=== PATIENT | female | born 1950 | race Caucasian/White ===

== ENCOUNTER 2017-07-13 07:35 | Emergency (ER) | payer MEDICARE, OTHER ==
[2017-07-13] MEDS: Sodium Chloride 0.9% 1,000 ML IV ONE (08:38)
[2017-07-13 09:12] LABS: CHLORIDE,CL 93 mmol/L (98-115); SODIUM,NA 130 mmol/L (136-145)
--- NOTE | 2017-07-13 09:16 | EDM.PDOC ---
ED HPI GENERAL MEDICAL PROBLEM - General Chief Complaint: General Stated Complaint: POSSIBLE RX ALLERGIC REACTION Time Seen by Provider: 07/13/17 07:55 Source of Information: Reports: Patient, RN History Limitations: Reports: No Limitations - History of Present Illness INITIAL COMMENTS - FREE TEXT/NARRATIVE: 67-year-old female presents to the emergency room brought in by the ambulance service from [facility] with concerns complaints of possible allergic reaction to medication she started yesterday. Patient states that she started on Lexapro feels that she was having a reaction to this. She denies any difficulty breathing, shortness of breath, swallowing, rash or hives, or swelling of the throat. On arrival she reports that she has some chest discomfort but this is the same discomfort that she's had in her chest since June. She's tried 2 other medications for her for her anxiety. She denies any pain radiating to her arm, back, jaw, stomach. She denies any nausea or vomiting. She denies being diaphoretic. She supplements her anxiety with marijuana. She feels that she likely is dehydrated denies any urinary frequency or urgency. She denies that her urine has been dark or cloudy. She is not having any dysuria. She's had a stress test about 7 years ago, and she had no difficulties with the stress test at that time. Onset: Today Onset Date: 07/13/17 Duration: Week(s): Location: Reports: Chest Quality: Reports: Pressure Severity: Mild Improves with: Reports: Medication Worsens with: Reports: None Associated Symptoms: Reports: No Other Symptoms Chest Pain Score (Numeric/FACES): 4 - Related Data Allergies Allergy/AdvReac Type Severity Reaction Status Date / Time No Known Allergies Allergy Verified 07/13/17 07:56 Home Meds: Home Meds ALPRAZolam [Xanax] 0.5 mg PO Q12H PRN 02/23/15 [History] ClonazePAM [KlonoPIN] 0.5 mg PO DAILY PRN 02/23/15 [History] Lidocaine 5% [Lidoderm 5%] 1 patch TOP DAILY PRN 02/23/15 [History] Losartan Potassium [Cozaar] 100 mg PO DAILY 02/23/15 [History] atorvaSTATin [Lipitor] 10 mg PO DAILY 02/23/15 [History] amLODIPine [Norvasc] 5 mg PO DAILY #30 tablet 02/26/15 [Rx] Escitalopram [Lexapro] 5 mg PO ASDIRECTED 07/13/17 [History] Past Medical History HEENT History: Reports: None Cardiovascular History: Reports: High Cholesterol Respiratory History: Reports: None Gastrointestinal History: Reports: None Genitourinary History: Reports: None [employer] History: Reports: None Musculoskeletal History: Reports: None Neurological History: Reports: None Psychiatric History: Reports: Anxiety Endocrine/Metabolic History: Reports: None Hematologic History: Reports: None Immunologic History: Reports: None Oncologic (Cancer) History: Reports: None Dermatologic History: Reports: None Social & Family History - Tobacco Use Smoking Status *Q: Never Smoker Second Hand Smoke Exposure: No - Caffeine Use Caffeine Use: Reports: Coffee, Tea - Recreational Drug Use Recreational Drug Use: Yes Recreational Drug Type: Reports: Marijuana/Hashish - Living Situation & Occupation Living situation: Reports: Occupation: Unemployed ED ROS GENERAL - Review of Systems Review Of Systems: See Below Constitutional: Denies: Fever, Chills, Weakness, Diaphoresis HEENT: Denies: Glasses, Throat Pain, Throat Swelling, Vertigo Respiratory: Denies: Shortness of Breath, Cough Cardiovascular: Reports: Other (chest pressure). Denies: Blood Pressure Problem , Dyspnea on Exertion, Orthopnea, Palpitations Endocrine: Reports: No Symptoms GI/Abdominal: Denies: Abdominal Pain, Constipation, Diarrhea : Denies: Frequency, Urgency Musculoskeletal: Reports: No Symptoms Skin: Denies: Cyanosis, Jaundice, Dryness, Pruritis, Rash, Erythema, Lesions, Urticaria Neurological: Denies: Confusion, Dizziness, Headache, Numbness, Paresthesia, Syncope, Tingling, Trouble Speaking, Difficulty Walking, Weakness, Change in Speech, Gait Disturbance Psychiatric: Reports: Anxiety Hematologic/Lymphatic: Reports: No Symptoms Immunologic: Reports: No Symptoms ED EXAM, GENERAL - Physical Exam Exam: See Below Exam Limited By: No Limitations General Appearance: Alert, WD/WN, No Apparent Distress Eye Exam: Bilateral Eye: EOMI, PERRL Ears: Normal External Exam Nose: Normal Inspection Throat/Mouth: Normal Inspection, Normal Lips, Normal Oropharynx, Normal Voice, No Airway Compromise Head: Atraumatic Neck: Normal Inspection, Supple. No: Carotid Bruit Respiratory/Chest: No Respiratory Distress, Lungs Clear Cardiovascular: Normal Peripheral Pulses, Regular Rate, Rhythm, No JVD, No Murmur Peripheral Pulses: 2+: Carotid (L), Carotid (R), Radial (L), Radial (R), Dorsalis Pedis (L), Dorsalis Pedis (R) GI/Abdominal: Normal Bowel Sounds, Soft Back Exam: Normal Inspection Extremities: Normal Inspection, Normal Range of Motion, Non-Tender, No Pedal Edema Neurological: Alert, Oriented, CN II-XII Intact, No Motor/Sensory Deficits Psychiatric: Anxious Skin Exam: Warm, Dry, Intact, Normal Color, No Rash Lymphatic: No Adenopathy EKG INTERPRETATION EKG Date: 07/13/17 Time: 08:11 Rhythm: NSR Rate (Beats/Min): 75 Tolstoy: Normal P-Wave: Present QRS: Normal ST-T: Normal QT: Prolonged Comparison: NA - No Prior EKG EKG Interpretation Comments: Normal sinus rhythm Nonspecific T wave abnormality Prolonged QT Abnormal ECG Course - Vital Signs Last Recorded V/S: Last Vital Signs Temp 96.0 F 07/13/17 07:43 Pulse 77 07/13/17 09:23 Resp 15 07/13/17 09:23 BP 138/82 07/13/17 09:23 Pulse Ox 98 07/13/17 09:23 - Orders/Labs/Meds Orders: Active Orders 24 hr Category Date Time Status EKG Documentation Completion [RC] ASDIRECTED Care 07/13/17 08:13 Active UA W/MICROSCOPIC [URIN] Stat Lab 07/13/17 08:35 Results Labs: Laboratory Tests 07/13/17 07/13/17 07/13/17 Range/Units 08:25 08:25 08:35 WBC 5.0 (5.0-10.0) 10^3/uL RBC 4.78 (3.80-5.50) 10^6/uL Hgb 14.0 (12.0-16.0) g/dL Hct 44.1 (37.0-47.0) % MCV 92.2 H (82.0-92.0) fL MCH 29.3 (27.0-31.0) pg MCHC 31.7 L (32.0-36.0) g/dL RDW 11.8 (11.5-14.5) % Plt Count 192 (150-300) 10^3/uL MPV 9.1 (7.4-10.4) fL Neut % (Auto) 65.9 (50.0-70.0) % Lymph % (Auto) 15.0 L (20.0-40.0) % Wood % (Auto) 18.2 H (2.0-8.0) % Eos % (Auto) 0.8 L (1.0-3.0) % Baso % (Auto) 0.1 (0.0-1.0) % Neut # (Auto) 3.3 (2.5-7.0) 10^3/uL Lymph # (Auto) 0.8 L (1.0-4.0) 10^3/uL Wood # (Auto) 0.9 H (0.1-0.8) 10^3/uL Eos # (Auto) 0.0 L (0.1-0.3) 10^3/uL Baso # (Auto) 0.0 (0.0-0.1) 10^3/uL Sodium 130 L (136-145) mmol/L Potassium 3.8 (3.3-5.3) mmol/L Chloride 93 L (98-115) mmol/L Carbon Dioxide 23.6 (21.0-32.0) mmol/L BUN 10 (6-25) mg/dL Creatinine 0.72 (0.51-1.17) mg/dL Est Cr Clr Drug Dosing 58.78 mL/min Estimated GFR (MDRD) > 60 mL/min Glucose 130 H (70-110) mg/dL Calcium 9.0 (8.7-10.3) mg/dL Troponin I 0.04 (0.00-0.070) ng/mL Urine Color Yellow (YELLOW) Urine Appearance Clear (CLEAR) Urine pH 7.5 (5.0-9.0) Ur Specific [place] 1.015 (1.005-1.030) Urine Protein Negative (NEGATIVE) mg/dL Urine Glucose (UA) Negative (NEGATIVE) mg/dL Urine Ketones 80 H (NEGATIVE) mg/dL Urine Occult Blood Trace-lysed H (NEGATIVE) Urine Nitrite Negative (NEGATIVE) Urine Bilirubin Negative (NEGATIVE) Urine Urobilinogen 0.2 (0.2-1.0) E.U./dL Ur Leukocyte Esterase Negative (NEGATIVE) Meds: Medications Discontinued Medications Generic Name Dose Route Start Last Admin Trade Name Freq PRN Reason Stop Dose Admin Diazepam 5 mg 07/13/17 09:42 Valium. PO 07/13/17 09:43 ONETIME ONE Sodium Chloride 1,000 mls @ 1,000 mls/hr 07/13/17 08:27 07/13/17 08:38 Normal Saline IV 07/13/17 09:26 1,000 mls/hr .BOLUS ONE Administration - Re-Assessments/Exams Free Text/Narrative Re-Assessment/Exam: 07/13/17 09:18 Patient is receiving 1 L of IV fluids. She is resting comfortably with no pain or discomfort. Departure - Departure Time of Disposition: 10:21 Disposition: Home, Self-Care 01 Condition: Good Clinical Impression: Hyponatremia, Anxiety, Chest discomfort Instructions: Panic Attacks, [id number], Palpitations Referrals: PCP,Not In Area [Primary Care Provider] - Forms: ED Department Discharge Additional Instructions: Patient should be returned ER if: -Chest discomfort left greater than 5 minutes -Chest discomfort gets worse in any way -Discomfort is not relieved by usual medications -Shortness of breath, sweats, dizziness, vomiting, or nausea with chest pain or chest discomfort -Chest discomfort moves into your arm, neck, back, jaw, or stomach Patient should take it easy the rest of the day continue with her regular prescribed medications. Patient is encouraged to drink water throughout the day. Drinking 6-8 glasses of water to prevent dehydration. Recommend follow-up with your primary care review your newly described medications within 1-2 weeks. - Problem List Review Problem List Initiated/Reviewed/Updated: Yes - My Orders Last 24 Hours: My Active Orders 07/13/17 08:13 EKG Documentation Completion [RC] ASDIRECTED 07/13/17 08:35 UA W/MICROSCOPIC [URIN] Stat - Assessment/Plan Last 24 Hours: My Active Orders 07/13/17 08:13 EKG Documentation Completion [RC] ASDIRECTED 07/13/17 08:35 UA W/MICROSCOPIC [URIN] Stat Assessment:: Chest discomfort Anxiety, generalized. Hyponatremia Plan: Patient should be returned ER if: -Chest discomfort left greater than 5 minutes -Chest discomfort gets worse in any way -Discomfort is not relieved by usual medications -Shortness of breath, sweats, dizziness, vomiting, or nausea with chest pain or chest discomfort -Chest discomfort moves into your arm, neck, back, jaw, or stomach Patient should take it easy the rest of the day continue with her regular prescribed medications. Patient is encouraged to drink water throughout the day. Drinking 6-8 glasses of water to prevent dehydration. Recommend also drinking either Gatorade or Pedialyte for electrolyte replacement. Recommend follow-up with your primary care review your newly described medications within 1-2 weeks.
[2017-07-13] MEDS: Diazepam 5 MG Tab PO ONE (09:52)
[2017-07-13 09:54] VITALS: BP 138/82
== END 2017-07-13 10:20 | disposition home or self-care (01) ==
LOC: KA.ED 07:35
DX: R07.89 Other chest pain (principal); E87.1 Hypo-osmolality and hyponatremia; F41.9 Anxiety disorder, unspecified; E78.00 Pure hypercholesterolemia, unspecified; Z79.899 Other long term (current) drug therapy
CPT/HCPCS: 36415; 80048; 81001; 84484; 85025; 93005; 96360; 99285; A9270-GY; J7030